=== PATIENT | male | born 1935 | race Caucasian/White ===

== ENCOUNTER 2017-08-30 16:41 | Emergency (ER) | payer OTHER ==
[~2017-08-30] VITALS: Ht 188 cm; Wt 106.1 kg
--- NOTE | ~2017-08-30 | EKG ---
[address] [address] ELECTROCARDIOGRAM REPORT Name: RENNY CARDOZA Room #: [facility]#: [id number] Admission: 08/30/17 Attend Phys: Discharge: 08/30/17 Date of : 39 Report #: [id number] THIS REPORT FOR: //name// [facility] ED Test Date: 2017-08-30 Test Time: 17:34:54 Pat Name: RENNY CARDOZA Department: Room: Gender: M Chief Revenue Officer: MARIA ALEJANDRA : 1935 Requested By: Dalia Fishman Order Number: [id number] MD: Marco A Sneed Measurements Intervals [place] Rate: 74 P: 42 ID: [id number] QRS: 31 QRSD: 123 T: 25 QT: 408 QTc: 453 Interpretive Statements Sinus rhythm Atrial premature complexes Compared to ECG 08/12/2009 09:10:42 Atrial premature complex(es) now present T-wave abnormality no longer present Electronically Signed On 08-31-2017 8:07:57 CDT by Marco A Sneed [email or web address] <ELECTRONICALLY SIGNED> By: Marco A Sneed MD, [facility] 08/31/17 [id number] Marco A Sneed MD, [facility] /EPI
[~2017-08-30 16:41] MED LIST: AMLODIPINE BESY10 MG PO; ANTIHISTAMINE25 MG PO; ASPIRIN325 PO; ATENOLOL 50 MG50 M1 PO; ATENOLOL 50MG T50 MG PO; AZITHROMYCIN 2250 MG PO; BENAZEPRIL 10 M10 MG PO; BYSTOLIC 5 MG5 MG PO; FISH OIL DR 1,1 EAC1 PO; FLONASE 0.05%50 MCG NASAL; HYDROCHLOROTH12.5 M1 PO; HYDROCHLOROTHIA25 M1 PO; IBUPROFEN 400400 M1 PO; LISINOPRIL10 MG PO; LISINOPRIL5 MG PO; MULTIVITAMINS1 EAC7 PO; TUSSIONEX PENN473 ML PO; TYLENOL325 MG PO; ULTRAM 50MG TAB50 MG PO; VITAMIN B-12100 MCG PO; VITAMIN E400 UNI7 PO
[2017-08-30 18:01] LABS: URINE BILIRUBIN NEGATIVE (Negative); URINE BLOOD TRACE (Negative); URINE CLARITY CLEAR; URINE COLOR YELLOW; URINE GLUCOSE-RANDOM* NEGATIVE (Negative); URINE KETONES NEGATIVE (Negative); URINE LEUKOCYTES NEGATIVE (Negative); URINE NITRITE NEGATIVE (Negative); URINE PROTEIN (DIPSTICK) NEGATIVE (Negative); URINE SPECIFIC GRAVITY <= 1.005 (1.005-1.035); URINE UROBILINOGEN 0.2 E.U./dl (0.2-1.0)
[2017-08-30 18:03] LABS: ABSOLUTE NEUTROPHILS 4.1 thou/uL (1.4-8.2); BASOPHILS 0.9 % (0.0-2.0); EOSINOPHILS 3.3 % (0.0-3.0); HEMATOCRIT 46.6 % (42.0-52.0); HEMOGLOBIN 16.1 gm/dL (14.0-18.0); LYMPHOCYTES 26.8 % (24.0-44.0); MCH 32.5 pg (26.0-34.0); MCHC 34.6 g/dL (28.0-37.0); MCV 93.9 fL (80.0-100.0); MONOCYTES 9.2 % (1.0-8.0); PLATELET COUNT 227 thou/uL (150-400); POLYS 59.8 % (36.0-66.0); RBC 4.97 mil/uL (4.50-6.00); RDW 12.7 % (10.5-14.5); WBC 6.8 thou/uL (4.0-11.0)
[2017-08-30 18:12] LABS: CALCIUM 9.8 mg/dL (8.5-10.1); CREATININE 1.1 mg/dL (0.7-1.3); POTASSIUM 3.8 mmol/L (3.5-5.1)
[2017-08-30] MEDS ORDERED: ASPIRIN325 PO (18:13)
[2017-08-30 18:18] LABS: ALBUMIN 4.2 g/dL (3.4-5.0); TOTAL BILIRUBIN 0.7 mg/dL (<0.1-1.0); TOTAL PROTEIN 8.2 g/dL (6.4-8.2)
[2017-08-30] MEDS ORDERED: CLONIDINE0.1 PO (19:05)
[2017-08-30] MEDS ORDERED: ZESTRIL20 MG PO (19:05)
[2017-08-30 19:20] VITALS: BP 163/85
[2017-09-28] MEDS ORDERED: AVAPRO300 MG PO (09:03)
[2017-09-28] MEDS ORDERED: BYSTOLIC20 MG PO (09:04)
[2017-09-28] MEDS ORDERED: SPIRONOLACTONE25 MG PO (09:05)
[2017-10-06] MEDS ORDERED: COLACE100 MG PO (10:00)
[2017-10-06] MEDS ORDERED: MIRALAX17 GM PO (10:00)
== END 2017-08-30 19:22 | disposition home or self-care (01) ==
LOC: ER 16:41
PROVIDERS: Physician Assistant
DX: I16.0 Hypertensive urgency (principal); I10 Essential (primary) hypertension; F32.9 Major depressive disorder, single episode, unspecified; F41.9 Anxiety disorder, unspecified; Z88.8 Allergy status to other drugs, medicaments and biological substances; Z85.828 Personal history of other malignant neoplasm of skin; Z95.5 Presence of coronary angioplasty implant and graft

== ENCOUNTER → 2017-09-23 | Outpatient (CLI) | payer OTHER ==
[~2017-09-23] MED LIST changes: +CLONIDINE0.1 PO; -FISH OIL DR 1,1 EAC1 PO; +FISH OIL DR 1,1 EACH PO; +ZESTRIL20 MG PO
== END ==
LOC: EDSTATUS 06:25 → CAT 06:25
DX: Z09 Encounter for follow-up examination after completed treatment for conditions other than malignant neoplasm (principal); N28.1 Cyst of kidney, acquired; K57.30 Diverticulosis of large intestine without perforation or abscess without bleeding; N32.9 Bladder disorder, unspecified; C64.2 Malignant neoplasm of left kidney, except renal pelvis

== ENCOUNTER → 2019-06-25 | Outpatient (CLI) | payer OTHER ==
[~2019-06-25] MED LIST changes: +AVAPRO300 MG PO; +BYSTOLIC20 MG PO; +COLACE100 MG PO; +FISH OIL DR 1,1 EAC1 PO; -FISH OIL DR 1,1 EACH PO; +MIRALAX17 GM PO; +SPIRONOLACTONE25 MG PO
== END ==
LOC: RAD 08:12
DX: R06.00 Dyspnea, unspecified (principal); R06.02 Shortness of breath

== ENCOUNTER → 2021-03-04 | Outpatient (CLI) | payer OTHER | LOC: SJCVC 13:12 | PROVIDERS: ATTEND Internal Medicine Cardiovascular Disease | DX: R06.00 Dyspnea, unspecified (principal); R06.01 Orthopnea; I25.10 Atherosclerotic heart disease of native coronary artery without angina pectoris; E78.00 Pure hypercholesterolemia, unspecified; I12.9 Hypertensive chronic kidney disease with stage 1 through stage 4 chronic kidney disease, or unspecified chronic kidney disease; N18.9 Chronic kidney disease, unspecified; Z90.5 Acquired absence of kidney; Z79.82 Long term (current) use of aspirin; Z79.899 Other long term (current) drug therapy; Z87.891 Personal history of nicotine dependence ==

== ENCOUNTER → 2021-03-25 | Outpatient (CLI) | payer OTHER | LOC: SJCVCIMAG 07:10 | PROVIDERS: ATTEND Internal Medicine Cardiovascular Disease | DX: I08.2 Rheumatic disorders of both aortic and tricuspid valves (principal); I25.10 Atherosclerotic heart disease of native coronary artery without angina pectoris; I12.9 Hypertensive chronic kidney disease with stage 1 through stage 4 chronic kidney disease, or unspecified chronic kidney disease; N18.9 Chronic kidney disease, unspecified; F32.9 Major depressive disorder, single episode, unspecified; F41.9 Anxiety disorder, unspecified; Z87.891 Personal history of nicotine dependence; Z88.9 Allergy status to unspecified drugs, medicaments and biological substances; Z79.82 Long term (current) use of aspirin; Z79.899 Other long term (current) drug therapy ==

== ENCOUNTER → 2021-06-08 | Outpatient (CLI) | payer OTHER | LOC: SJCVCIMAG 10:35 | PROVIDERS: ATTEND Internal Medicine Cardiovascular Disease | DX: I48.91 Unspecified atrial fibrillation (principal); I82.4Z2 Acute embolism and thrombosis of unspecified deep veins of left distal lower extremity; I25.10 Atherosclerotic heart disease of native coronary artery without angina pectoris; N18.31 Chronic kidney disease, stage 3a; I12.9 Hypertensive chronic kidney disease with stage 1 through stage 4 chronic kidney disease, or unspecified chronic kidney disease; E78.00 Pure hypercholesterolemia, unspecified; I26.99 Other pulmonary embolism without acute cor pulmonale; R91.1 Solitary pulmonary nodule; J98.6 Disorders of diaphragm; M81.0 Age-related osteoporosis without current pathological fracture; R00.2 Palpitations; Z79.82 Long term (current) use of aspirin; Z88.8 Allergy status to other drugs, medicaments and biological substances; Z79.899 Other long term (current) drug therapy; Z87.891 Personal history of nicotine dependence; R94.31 Abnormal electrocardiogram [ECG] [EKG] ==